=== PATIENT | female | born 1995 | race Caucasian/White ===

== ENCOUNTER 2017-03-26 21:42 | Emergency (ER) | payer OTHER, BC ==
[~2017-03-26] VITALS: Ht 165.1 cm; Wt 60.9 kg
[2017-03-26 21:44] VITALS: Ht 165.1 cm; Wt 60.9 kg
--- OUTSIDE RECORDS SUMMARY | 2017-03-26 21:46 | XMS REPORT | Continuity of Care Document ---
Author Author [facility] Organization [facility] Address Unknown Phone Unavailable Allergies Active Description Code Type Severity Reaction Onset Reported/Identified Relationship to Patient Clinical Status Yes No Known Drug Allergies No Known Drug Allergies Drug Allergy Unknown N/A 10/31/2009 Medications Problems Procedures Results Encounters ACCT No. Visit Date/Time Discharge Status Pt. Type Provider Facility Loc./Unit Complaint [id number] 08/25/2016 04:13:00 2015 04:45:00 DIS Emergency Grady Howell DO [facility] W.EDS
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
--- OUTSIDE RECORDS SUMMARY | 2017-03-26 21:46 | XMS REPORT | Referral Summary ---
Author Author [facility] Organization [facility] Address Unknown Phone Unavailable Care Team Providers Care Sod Stripper Name Role Phone No PCP, Pt States Primary Care Physician [phone] Encounter VC Date(s): 12/27/15 - 12/27/15 [facility] [address] [place] [address] [phone] Discharge Diagnosis: Bacterial vaginosis Discharge Disposition: 01-Home or Self Care Attending Physician: Jeremiah Alexander MD Admitting Physician: Jeremiah Alexander MD Vital Signs Most recent to 1 oldest [Reference Range]: Temperature Oral 36.3 degC [35.8-37.3 degC] (12/27/15 9:55 AM) Peripheral Pulse 66 bpm Rate [60-100 bpm] (12/27/15 2:04 PM) Respiratory Rate 16 br/min [14-20 br/min] (12/27/15 9:55 AM) Blood Pressure 107/69 mmHg [90-140/60-90 mmHg] (12/27/15 2:04 PM) SpO2 98 % (12/27/15 9:55 AM) Problem List No Known Problems Allergies, Adverse Reactions, Alerts No Known Medication Allergies Medications Flagyl 500 mg oral tablet 500 mg 1 tabs, Oral, BID, X 7 days, # 14 tabs, 0 Refill(s) Start Date: 12/27/15 Stop Date: 01/03/16 Status: Ordered Results Urinalysis Most recent to 1 oldest [Reference Range]: UA Color Yellow (12/27/15 10:41 AM) UA Appear Sl Cloudy (12/27/15 10:41 AM) UA pH [5.0-8.0] 6.0 (12/27/15 10:41 AM) UA Leuk Est Negative [Negative] (12/27/15 10:41 AM) UA Nitrite Negative [Negative] (12/27/15 10:41 AM) UA Protein Negative [Negative] (12/27/15 10:41 AM) UA Glucose Negative [Negative] (12/27/15 10:41 AM) UA Ketones Negative [Negative] (12/27/15 10:41 AM) UA Urobilinogen Negative [<1.0] (12/27/15 10:41 AM) UA Bili [Negative] Negative (12/27/15 10:41 AM) UA Blood [Negative] Negative (12/27/15 10:41 AM) UA Spec Grav 1.020 [1.003-1.030] (12/27/15 10:41 AM) Type Not Specified (12/27/15 10:41 AM) Microbiology Reports TEST: Affirm Vaginitis Panel STATUS: Auth (Verified) BODY SITE: SOURCE: Cervix/Vaginal COLLECTED DATE/TIME: 12/27/15 11:16 AM Affirm Vaginitis Panel Negative for Trichomonas vaginalis Positive for Gardnerella vaginalis Negative for Pratima species Immunizations No data available for this section Procedures No data available for this section Social History Social History Type Response Smoking Status Current every day smoker; Type: Cigarettes; Tobacco use per day: Less than Pack Assessment and Plan No data available for this section
[2017-03-26] MEDS ORDERED: NO DAILY MEDS (21:51)
--- NOTE | 2017-03-26 21:55 | NUR ---
PROVIDER YURI MENDOZA APRN IN ROOM WITH PT.
--- NOTE | 2017-03-26 21:55 | ERPDOC ---
Departure Disposition Decision Date: March 26, 2017 Disposition Decision Time: 22:34 Disposition: 01 DISCHARGED HOME, SELF-CARE Impression Impression Impression: Primary Impression: Nasal laceration Condition: Improved Seen By: Mid-level only Patient Instructions: Facial Laceration (ED), Care For Your Stitches (ED) Problems/Meds/Labs Reviewed?: Yes Medications reviewed and manag: Yes Additional Instructions: 1. Have sutures removed in 5-7 days 2. Clean around stitches with peroxide/water 50:50 mixture twice daily to prevent scabbing 3. Wear mask at work to prevent contamination Departure Forms: Return to Work/School Permit Return to Work/School Date: March 27, 2017 Follow up care ordered?: Yes Mental Status: Alert, Oriented HPI - Skin General General Chief Complaint: Laceration Stated Complaint: NOSE LACERATION Time Seen by Provider: 21:49 Source: patient Exam Limitations: no limitations HPI - Skin General Initial Comments Chanda is a 22 year old female who reports suffering a laceration to the tip of her nose around 2114 while working. Turned and caught nose on a hook at work causing the laceration. Reports it doesn't really hurt very much. Tetanus last received about 4 years ago. Occurred At: work Onset: Rapid Duration: 1 hr Location: face 1 - stellate through and through laceration Associated Symptoms: denies symptoms Hx of Similar Symptoms: No Allergies: Coded Allergies: No Known Allergies (Unverified , 03/26/17) Past History Past Medical History Pt denies signifigant PMH Surgical History Denies Surgeries Vaccines Hx Tetanus, Diptheria, Pertuss: Yes Social History Smoking Status: Never smoker Substance Use Type: does not use Marital Status: Single Current Occupational Status: employed Review of Systems Constitutional Constitutional: DENIES: fever Integumentary Skin: other (laceration) All other Systems All Other Systems: Reviewed and Negative Physical Exam General General Nourishment: well nourished, well developed, appears stated age, no acute distress Vitals and Pain First Documented Vital Signs Date Time Temp Pulse Resp B/P Pulse Ox O2 Delivery O2 Flow Rate FiO2 03/26/17 21:44 98.2 69 15 145/80 100 Room Air Weight: Kilograms: Height (feet): Height (inches): Triage Pain Scale: ENMT (brief) ENMT Brief: FOUND: mucosa moist Comments 2 cm stellate through and through nasal tip laceration Integumentary (brief) Integumentary Brief: FOUND: dry, pink, warm Psychiatric (brief) Psychiatric Brief: FOUND: alert, attentive, normal affect, oriented Differential Diagnoses Considering: Laceration Procedures Laceration/Wound Repair Wound/Laceration Repair : Wound Location: face Wound Length (cm): 2 Depth, Shape: stellate Explored: clean Irrigated: saline Prep: hibiclens Anesthesia: 1% Lidocaine Volume Anesthetic (ccs): 0 Type of Block: local Repaired With: Sutures Suture Size: 4:0 Suture Type: prolene Number of Sutures: 5 Layer Closure?: No Progress Results/Orders Orders Procedure Category Date Status Time Lidocaine 1% PHA 03/26/17 Complete (Xylocaine 1%) 22:00 Medications Current ED Medications Lidocaine HCl (Xylocaine 1%) 100 mg O ONCE INFIL Last administered on t 22:02; Start 03/26/17 at 22:00; Stop 03/26/17 at 22:02; Status DC YURI MENDOZA APRN March 26, 2017 21:55
[2017-03-26] MEDS ORDERED: LIDOCAINE 1% (10mg/ml) 30ml SDV INFIL ONE (22:00)
--- NOTE | 2017-03-26 22:15 | NUR ---
PROVIDER/SUTURES YURI MENDOZA APRN IN ROOM WITH PT FOR SUTURING.
[2017-03-26 22:48] VITALS: BP 145/80; PULSE 69; RESP 15; TEMP 98.2; O2SAT 100
== END 2017-03-26 22:48 | disposition home or self-care (01) ==
LOC: ED 21:42
DX: S01.21XA Laceration without foreign body of nose, initial encounter (principal); W26.8XXA Contact with other sharp object(s), not elsewhere classified, initial encounter; Y93.89 Activity, other specified; Y92.9 Unspecified place or not applicable; Y99.0 Civilian activity done for income or pay